=== PATIENT | male | born 1955 | race Caucasian/White ===

== ENCOUNTER 2021-04-11 22:44 | Emergency (ER) | payer OTHER, MEDICARE ==
[~2021-04-11] VITALS: Ht 190.5 cm; Wt 92.1 kg
[2021-04-12 00:44] VITALS: BP 151/97
[2021-04-12] MEDS ORDERED: IBUPROFEN 800 MG TAB PO ONE (01:15)
[2021-04-12] MEDS ORDERED: ACETAMINOPHEN 500 MG TAB PO ONE (01:15)
== END 2021-04-12 02:12 | disposition home or self-care (01) ==
LOC: ER 22:46
DX: S62.615A Displaced fracture of proximal phalanx of left ring finger, initial encounter for closed fracture (principal); S61.412A Laceration without foreign body of left hand, initial encounter; S40.022A Contusion of left upper arm, initial encounter; S00.81XA Abrasion of other part of head, initial encounter; I10 Essential (primary) hypertension; E11.9 Type 2 diabetes mellitus without complications; E78.5 Hyperlipidemia, unspecified; W01.0XXA Fall on same level from slipping, tripping and stumbling without subsequent striking against object, initial encounter; Y93.89 Activity, other specified; Y92.89 Other specified places as the place of occurrence of the external cause; Y99.8 Other external cause status
CPT/HCPCS: 12002; 70486; 73090; 73130; 99284; J2001